=== PATIENT | female | born 1995 | race Caucasian/White ===

== ENCOUNTER → 2018-07-29 18:37 | Outpatient (CLI) | payer OTHER, SELFPAY ==
--- NOTE | 2018-07-29 18:40 | DI.RAD.S_ITS ---
PROCEDURE: XR ANKLE RT MIN 3V INDICATIONS: right ankle pain TECHNIQUE: 3 views of the ankle were acquired. COMPARISON: None. FINDINGS: Bones: No fractures or dislocations. Ankle mortise is normally aligned. No suspicious bony lesions. Soft tissues: No tibiotalar joint effusion. Achilles tendon appears normal. IMPRESSION: No visualized acute fracture or dislocation. However, if clinical concern and/or pain persist, short interval imaging followup in 7-10 days is recommended, as occult injury cannot be definitively excluded. Dictated by: Phylicia Cavazos M.D. on 07/29/2018 at 19:41 Approved by: Phylicia Cavazos M.D. on 07/29/2018 at 19:44
== END ==
PROVIDERS: Visit Provider Physician Assistant
DX: M25.571 Pain in right ankle and joints of right foot (principal)
CPT/HCPCS: 73610